=== PATIENT | female | born 1945 | race Caucasian/White ===

== ENCOUNTER 2017-04-03 05:18 | Emergency (ER) | payer MEDICARE, OTHER ==
--- NOTE | 2017-04-03 05:31 | ED Physician Documentation ---
PD HPI CHEST PAIN - Stated complaint Stated Complaint: CHEST PAIN - Chief complaint Chief Complaint: Cardiac - History obtained from History obtained from: Patient - History of Present Illness Timing - onset: Enter time (04:00) Timing - onset during: Sleep Timing - details: Abrupt onset Pain level now: 4 Quality: Pressure Location: Substernal Radiation: Neck, Other (bilateral shoulders) Improved by: Nothing Worsened by: Other (no apparent exacerbating factors) Associated symptoms: Diaphoresis (patient says this is normal for her ("I'm always sweating", per patient)). No: Shortness of air, Nausea, Vomiting, Feeling faint / dizzy, General Weakness, Palpitations, Cough Similar symptoms before: Has not had sx before Recently seen: Not recently seen - Additional information Additional information: awoke at 4 AM this morning with central chest pressure that radiated to both shoulders, neck, and to ears. 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, Hysterectomy, Other Cardiovascular: Other HEENT: Tonsil/Adenoidectomy - Present Medications Home Medications: Ambulatory Orders Medication Instructions Recorded Confirmed Aspirin [Maria R] 325 mg PO DAILY 10/13/13 04/03/17 Atorvastatin Calcium [Lipitor] 20 mg PO DAILY 10/13/13 04/03/17 Celecoxib [CeleBREX] 200 mg PO DAILY 10/13/13 04/03/17 Evoxac 30 mg PO TID 10/13/13 04/03/17 Gabapentin [Neurontin] 600 mg PO DAILY 10/13/13 04/03/17 Multivitamin [Multi-Day Vitamins] 1 each PO DAILY 10/13/13 04/03/17 Omeprazole [Prilosec] 40 mg PO BID 10/13/13 04/03/17 Pentosan Polysulfate Sodium 100 mg PO TID 10/13/13 04/03/17 [Elmiron] Vitamin E [Aquasol E] 50 unit PO DAILY 10/13/13 04/03/17 diazePAM [Valium] 5 mg PO TID PRN #15 tablet 04/20/15 04/03/17 oxyCODONE [Roxicodone] 5 - 10 mg PO Q6H PRN #20 tablet 04/20/15 04/03/17 - Allergies Allergies/Adverse Reactions: Allergies Allergy/AdvReac Type Severity Reaction Status Date / Time naproxen Allergy Mild Itching Verified 04/03/17 05:26 - Social History Does the pt smoke?: No Smoking Status: Never smoker Does the pt drink ETOH?: No Does the pt have substance abuse?: No - Immunizations Immunizations are current?: Yes - POLST Patient has POLST: No PD ED PE NORMAL - Vitals Vital signs reviewed: Yes - General General: Alert and oriented X 3, No acute distress, Well developed/nourished - Cardiac Cardiac: RRR, No murmur, No gallop, No rub - Respiratory Respiratory: No respiratory distress, Clear bilaterally - Abdomen Abdomen: Soft, Non tender - Derm Derm: Normal color, Warm and dry - Extremities Extremities: No edema Results - Vitals Vitals: Vital Signs - 24 hr 04/03/17 04/03/17 05:22 06:31 Temperature 36.2 C L Heart Rate 83 70 Respiratory 19 16 Rate Blood Pressure 161/81 H 129/65 O2 Saturation 96 97 Oxygen O2 Source Room air - EKG (time done) No standard instances Rate: Rate (enter#) (81) Rhythm: NSR Newberg: LAD Intervals: Normal CO QRS: Normal Ischemia: Normal ST segments - Labs Labs: Laboratory Tests 04/03/17 04/03/17 04/03/17 05:30 05:30 05:30 WBC 9.6 RBC 4.30 Hgb 13.3 Hct 39.7 MCV 92.5 MCH 31.0 MCHC 33.5 RDW 14.0 Plt Count 251 MPV 9.5 Neut # 5.6 Lymph # 2.9 [place] # 0.9 Eos # 0.2 Baso # 0.1 Absolute Nucleated RBC 0.00 Nucleated RBCs 0.0 Sodium 143 Potassium 3.5 Chloride 107 Carbon Dioxide 27 Anion Gap 9.0 BUN 9 Creatinine 0.6 Estimated GFR (MDRD) 99 Glucose 101 H Calcium 9.1 Total Bilirubin 0.7 AST 31 ALT 28 Alkaline Phosphatase 87 Troponin I < 0.04 Total Protein 7.2 Albumin 4.2 Globulin 3.0 Albumin/Globulin Ratio 1.4 Lipase 71 H - Rads (name of study) chest xray Radiology: Prelim report reviewed, See rad report PD MEDICAL DECISION MAKING - ED course Complexity details: reviewed results, re-evaluated patient, considered differential, d/w patient Departure - Departure Disposition: 01 Home, Self Care Clinical Impression: Chest pain Condition: Good Instructions: ED Chest Pain Atypical Unkn Cause Follow-Up: Edwin Leon MD [Primary Care Provider] - (Call to arrange for next available appointment)
[2017-04-03 05:41] LABS: BASOPHILS # (AUTO) 0.1 10^3/uL (0.0-0.1); BASOPHILS % (AUTO) 0.8 %; EOSINOPHILS # (AUTO) 0.2 10^3/uL (0.0-0.7); EOSINOPHILS % (AUTO) 1.6 %; HCT - HEMATOCRIT 39.7 % (37.0-47.0); HGB - HEMOGLOBIN 13.3 g/dL (12.0-16.0); LYMPHOCYTES # (AUTO) 2.9 10^3/uL (1.5-3.5); LYMPHOCYTES % (AUTO) 29.9 %; MEAN CORPUSCULAR HGB CONC 33.5 g/dL (32.0-36.0); MEAN CORPUSCULAR VOLUME 92.5 fL (81.0-99.0); MEAN PLATELET VOLUME 9.5 fL (7.9-10.8); MONOCYTES # (AUTO) 0.9 10^3/uL (0.0-1.0); MONOCYTES % (AUTO) 9.4 %; NEUTROPHILS # (AUTO) 5.6 10^3/uL (1.5-6.6); NEUTROPHILS % (AUTO) 58.3 %; UNCORRECTED WHITE BLOOD COUNT 9.6 x10^3/uL; WHITE BLOOD COUNT 9.6 x10^3/uL (4.8-10.8)
[2017-04-03 05:54] LABS: ALBUMIN/GLOBULIN RATIO 1.4 (1.0-2.2); BILIRUBIN,TOTAL 0.7 mg/dL (0.2-1.0); CALCIUM 9.1 mg/dL (8.5-10.3); CREATININE 0.6 mg/dL (0.4-1.0); POTASSIUM 3.5 mmol/L (3.5-5.0); TOTAL PROTEIN 7.2 g/dL (6.7-8.2)
[2017-04-03 06:32] VITALS: BP 129/65
--- NOTE | 2017-04-03 06:39 | XRAY Preliminary Report ---
Exam: XR Chest 2 View PA/LAT IMPRESSION: Negative 2-view chest radiography. [facility] SITE ID: [id number]
--- NOTE | 2017-04-03 06:41 | XRAY Report ---
EXAM: CHEST RADIOGRAPHY EXAM DATE: 04/03/2017 06:18 AM. CLINICAL HISTORY: Chest pain. COMPARISON: 05/19/2009. TECHNIQUE: 2 views. FINDINGS: Lungs/Pleura: No focal opacities evident. No pleural effusion. No pneumothorax. Normal volumes. Mediastinum: Heart and mediastinal contours are unremarkable. Other: None. IMPRESSION: Negative 2-view chest radiography. [facility] Referring Provider Line: [phone] SITE ID: [id number]
== END 2017-04-03 07:05 | disposition home or self-care (01) ==
LOC: ED 05:18
DX: R07.9 Chest pain, unspecified (principal); M54.2 Cervicalgia; E78.00 Pure hypercholesterolemia, unspecified; K21.9 Gastro-esophageal reflux disease without esophagitis; M19.90 Unspecified osteoarthritis, unspecified site; Z79.82 Long term (current) use of aspirin
CPT/HCPCS: 36415; 71020; 80053; 83690; 84484; 85025; 93005; 99283; 99284

== ENCOUNTER 2017-04-29 10:43 | Outpatient (CLI) | payer MEDICARE, OTHER ==
--- NOTE | 2017-04-29 16:38 | CT Report ---
CT SINUSES: 04/29/2017 CLINICAL HISTORY: Chronic sinusitis. TECHNIQUE: Axial images were obtained through the paranasal sinuses. Sagittal and coronal reformati ons performed. FINDINGS: The visualized paranasal sinuses are clear. There is no mucosal thickening or fluid level . Both ostiomeatal complexes are patent. There is mild turbinate edema at the time of examination. Bilateral altaf bullosa noted. The nasal septum is minimally deviated towards the right. The periorbital soft tissues are normal. The osseous structures are intact. IMPRESSION: 1. CLEAR PARANASAL SINUSES. 2. MILD TURBINATE EDEMA. JOB #: [id number] EXT JOB #:[id number]
== END 2017-04-29 10:44 | disposition home or self-care (01) ==
LOC: DI 10:43
PROVIDERS: ATTEND Otolaryngology
DX: J32.9 Chronic sinusitis, unspecified (principal)
CPT/HCPCS: 70486

== ENCOUNTER 2017-06-18 08:23 | Day surgery (SDC) | payer MEDICARE, OTHER ==
[2017-06-18] MEDS ORDERED: LACTATED RINGERS 1,000 ML IV ONE ×2 (08:43→10:00)
[2017-06-18] MEDS ORDERED: fentaNYL 100 MCG/2 ML VIAL IVP ONE (09:38)
[2017-06-18] MEDS ORDERED: ONDANSETRON 4 MG/2 ML VIAL IVP ONE (09:38)
[2017-06-18] MEDS ORDERED: MIDAZOLAM 2 MG/2 ML VIAL IVP ONE (09:38)
--- NOTE | 2017-06-18 10:44 | PROCEDURE REPORT ---
DATE OF PROCEDURE: 06/18/2017 00:00:00 PROCEDURE PERFORMED: EGD with biopsy. ENDOSCOPIST: Brandon Santos MD. PRIMARY CARE: Edwin Leon MD. INDICATION: Worsening GE reflux, rule out Castillo's esophagus. Previous endoscopy is apparently negat mack. Currently having sinus drainage that has been blamed on reflux. PREMEDICATIONS: Fentanyl 100 mcg, Versed 7 mg IV titration, Zofran 4 mg IV titration. TOTAL SEDATION TIME: 11 minutes. After informed consent was obtained, the patient placed in left lateral decubitus position. The video colonoscope was placed in the oropharynx and with the patient's help swallowed into the esophagus. T he esophagus, stomach, and duodenum were carefully examined. On withdrawal, retroflexed view of the G E junction was performed. The scope was removed. The patient tolerated the procedure well. BLOOD LOSS: None. COMPLICATIONS: None. FINDINGS 1. A 0.5 cm tongue of abnormal tissue above the squamocolumnar junction at 33 cm. This is either an h ealing erosion or tongue of Castillo's. Biopsies taken x2. This was T0 M0 0.5. 2. A 3 cm hiatal hernia. 3. Normal stomach otherwise. 4. Normal duodenum. The patient will call the office to schedule a followup with me and we will send results of biopsies. It may well be that she needs a physiologic test such as a restech performed and certainly needs adj ustment of her medication. JOB #: [id number] EXT JOB #:[id number]
[2017-06-18 10:48] VITALS: BP 131/75
== END 2017-06-18 08:24 | disposition home or self-care (01) ==
LOC: SDS 08:23
PROVIDERS: ATTEND Internal Medicine Gastroenterology
PROC: 0DB58ZX Excision of Esophagus, Via Natural or Artificial Opening Endoscopic, Diagnostic (ICD-10-PCS; principal; 2017-06-18 09:30)
DX: K21.9 Gastro-esophageal reflux disease without esophagitis (principal); K44.9 Diaphragmatic hernia without obstruction or gangrene; I10 Essential (primary) hypertension; E78.00 Pure hypercholesterolemia, unspecified; M79.7 Fibromyalgia; J45.909 Unspecified asthma, uncomplicated; M35.00 Sjogren syndrome, unspecified; Z79.82 Long term (current) use of aspirin
CPT/HCPCS: 43239; 88305; J7120

== ENCOUNTER 2017-07-08 09:56 | Outpatient (CLI) | payer MEDICARE, OTHER ==
[2017-07-08] MEDS ORDERED: BARIUM SULFATE 148 GM POWDER PO ONE (10:46)
[2017-07-08] MEDS ORDERED: BARIUM SULFATE 454 GM TUBE PO ONE (10:46)
--- NOTE | 2017-07-08 11:07 | XRAY Report ---
MODIFIED BARIUM SWALLOW: 07/08/2017 TOTAL FLUORO TIME: 1 minute, 6 seconds. TOTAL NUMBER OF IMAGES: 57 FINDINGS/IMPRESSION: Serial thicknesses of barium were administered orally and followed fluoroscopically with a Speech Pathologist in attendance. No aspiration or tracheal penetration was demonstrated. Please refer to the Speech report for further details. JOB #: [id number] EXT JOB #: [id number] [facility]
== END 2017-07-08 09:57 | disposition home or self-care (01) ==
LOC: DI 09:56
PROVIDERS: ATTEND Otolaryngology
DX: K21.0 Gastro-esophageal reflux disease with esophagitis (principal); F45.8 Other somatoform disorders
CPT/HCPCS: 74230; 92611; G8996; G8997; G8998

== ENCOUNTER 2017-08-13 10:43 | Outpatient (CLI) | payer MEDICARE, OTHER ==
--- NOTE | 2017-08-13 12:31 | XRAY Report ---
THREE-VIEW RIGHT SHOULDER: 08/13/2017 CLINICAL INDICATION: Pain. FINDINGS: Internal and external rotational views and a scapular Y view of the right shoulder demonst rate mild degenerative changes, with small osteophytes. There appear to be postoperative changes in the distal right clavicle. No acute fracture is seen. IMPRESSION: MILD DEGENERATIVE CHANGES. POSTOPERATIVE CHANGES IN THE DISTAL RIGHT CLAVICLE. JOB #: [id number] EXT JOB #:[id number]
== END 2017-08-13 10:44 | disposition home or self-care (01) ==
LOC: DI 10:43
PROVIDERS: ATTEND Family Medicine
DX: M19.011 Primary osteoarthritis, right shoulder (principal)

== ENCOUNTER 2017-09-13 09:23 | Outpatient (CLI) | payer MEDICARE, OTHER ==
--- NOTE | 2017-09-13 20:46 | Ultrasound Report ---
EXAM: ABDOMEN ULTRASOUND EXAM DATE: 09/13/2017 10:09 AM. CLINICAL HISTORY: Elevated bilirubin. COMPARISON: None. TECHNIQUE: Real-time scanning was performed with static images obtained. FINDINGS: Liver: Heterogeneous liver parenchyma without mass or intrahepatic bile duct dilation noted. 12.6 cm. Main portal vein flow: Hepatopetal. Gallbladder: Surgically absent. Biliary System: Common bile duct measures 4.5 mm. No intrahepatic or extrahepatic ductal dilatation. Pancreas: Partially obscured but otherwise unremarkable. Kidneys: Right: 10.8 cm longitudinally. Normal. No contour-deforming mass, stones, or hydronephrosis. Left: 10.4 cm longitudinally. Normal. No contour-deforming mass, stones, or hydronephrosis. Spleen: 8.2 x 3.2 x 3.2 cm. Normal in size and echotexture. Aorta and Inferior Vena Cava: Unremarkable. Other: None. IMPRESSION: 1. Gallbladder is absent. 2. Heterogeneous liver. No mass or intrahepatic bile duct dilation. Normal common bile duct. 3. Pancreas not well seen but grossly unremarkable. [facility] Referring Provider Line: [phone] SITE ID: [id number]
== END 2017-09-13 09:24 | disposition home or self-care (01) ==
LOC: DI 09:23
PROVIDERS: ATTEND Family Medicine
DX: R94.5 Abnormal results of liver function studies (principal); Z90.49 Acquired absence of other specified parts of digestive tract
CPT/HCPCS: 76700

== ENCOUNTER 2017-10-12 00:32 | Emergency (ER) | payer MEDICARE, OTHER ==
--- NOTE | 2017-10-12 01:14 | ED Physician Documentation ---
PD HPI BACK PAIN - Stated complaint Stated Complaint: LOWER BACK PX - Chief complaint Chief Complaint: Back Pain - History obtained from History obtained from: Patient - History of Present Illness Timing - onset: How many days ago (2) Timing - duration: Days (2) Timing - details: Gradual onset, Still present Location: Lower, Right, Left Quality: Pain, Spasm, Aching Associated symptoms: Numbness (pain radiates down both back of thighs to sides of feet. Has had it before with exac of sciatic pain. No noted new injury, but increased over past couple days.). No: Fever, Weakness Improves with: Rest Worsened by: Movement Contributing factors: No: Lifting, Twisting, Trauma Similar symptoms before: Diagnosis (sciatic and degenerative disc problems, with intermittent flares. She says she gets a shot monthly by PMD that keeps it from flaring up. She does not know the name of the med.) Recently seen: Not recently seen Review of Systems Ten Systems: 10 systems reviewed and negative Constitutional: denies: Fever, Chills Nose: denies: Rhinorrhea / runny nose, Congestion Throat: denies: Sore throat Respiratory: denies: Cough GI: reports: Nausea (when the pain was worse earlier today). denies: Abdominal Pain, Vomiting, Diarrhea : reports: Incontinent (due to bladder control and not from back issues.). denies: Dysuria, Frequency Skin: denies: Rash, Lesions Musculoskeletal: reports: Back pain Neurologic: reports: Numbness (chronic in legs from neuropathy and gets worse with the back pain flare ups.). 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, Hysterectomy HEENT: Tonsil/Adenoidectomy - Present Medications Home Medications: Ambulatory Orders Medication Instructions Recorded Confirmed Atorvastatin Calcium [Lipitor] 20 mg PO DAILY 10/13/13 10/12/17 Evoxac 30 mg PO BID 10/13/13 10/12/17 Pentosan Polysulfate Sodium 100 mg PO BID 10/13/13 10/12/17 [Elmiron] Aspirin [Aspirin EC] 81 mg PO DAILY 06/17/17 10/12/17 Pantoprazole [Protonix] 40 mg PO BID 06/17/17 10/12/17 Prevagen 1 tab PO DAILY 06/17/17 10/12/17 Vit A/C/E/Zinc/Selenium/Copper 1 each PO DAILY 06/17/17 10/12/17 [Vision Formula Tablet] Dexamethasone [Decadron] 4 mg PO DAILY #5 tablet 10/12/17 Methocarbamol [Robaxin] 500 mg PO Q8H PRN #15 tablet 10/12/17 Metoprolol Tartrate 1 tab PO DAILY 10/12/17 10/12/17 Ondansetron Odt [Zofran] 4 mg TL Q6H PRN #15 tablet 10/12/17 Oxycodone HCl/Acetaminophen 1 each PO Q6H PRN #20 tablet 10/12/17 [Percocet 5-325 mg Tablet] oxyCODONE [Roxicodone] 5 mg PO Q6HR PRN 10/12/17 10/12/17 - Allergies Allergies/Adverse Reactions: Allergies Allergy/AdvReac Type Severity Reaction Status Date / Time naproxen Allergy Mild Itching Verified 10/12/17 00:48 - Social History Does the pt smoke?: No Smoking Status: Never smoker Does the pt drink ETOH?: No Does the pt have substance abuse?: No - Immunizations Immunizations are current?: Yes - POLST Patient has POLST: No PD ED PE NORMAL - Vitals Vital signs reviewed: Yes - General General: Alert and oriented X 3, Well developed/nourished, Other (appears in pain, guarded ROM of the low back. ) - Neck Neck: Supple, no meningeal sign, No adenopathy - Cardiac Cardiac: RRR, No murmur - Respiratory Respiratory: Clear bilaterally - Abdomen Abdomen: Soft, Non tender - Female Female : Deferred - Rectal Rectal: Deferred - Back Back: No CVA TTP - Derm Derm: Normal color, Warm and dry - Extremities Extremities: No tenderness to palpate, Normal ROM s pain - Neuro Neuro: Alert and oriented X 3, No motor deficit, Normal speech, Other ( decreased sensation of both lower legs laterally and around the knees (prior knee replacements).) Results - Vitals Vitals: Vital Signs - 24 hr 10/12/17 10/12/17 10/12/17 00:35 01:52 02:05 Temperature 36.9 C 36.4 C L Heart Rate 68 59 L 65 Respiratory 20 14 16 Rate Blood Pressure 163/79 H 136/81 H 144/85 H O2 Saturation 97 96 99 Oxygen O2 Source Room air PD MEDICAL DECISION MAKING - ED course Complexity details: considered differential (recurrent problem familiar to the patient. No other red flags (has ongoing numbness in legs, not worse than baseline). ), d/w patient, d/w family Departure - Departure Disposition: Home, Self Care Clinical Impression: Low back pain Qualifiers: Chronicity: acute Back pain laterality: bilateral Sciatica presence: with sciatica Sciatica laterality: bilateral sciatica Qualified Code(s): M54.42 - Lumbago with sciatica, left side Condition: Stable Record reviewed to determine appropriate education?: Yes Instructions: ED Low Back Pain Injury, ED Sciatica Follow-Up: Edwin Leon MD [Primary Care Provider] - Prescriptions: Dexamethasone [Decadron] 4 mg PO DAILY #5 tablet Methocarbamol [Robaxin] 500 mg PO Q8H PRN #15 tablet PRN Reason: Spasms Ondansetron Odt [Zofran] 4 mg TL Q6H PRN #15 tablet PRN Reason: Nausea / Vomiting Oxycodone HCl/Acetaminophen [Percocet 5-325 mg Tablet] 1 each PO Q6H PRN #20 tablet PRN Reason: Pain Comments: Decadron daily for 5 more days for inflammation. Use Tylenol or Percocet if needed for pain every 6 hours. He can use methocarbamol if needed for spasms and stiffness 3 times a day. Ondansetron if needed for nausea. Heat and gentle stretching for the low back. Follow-up with Dr. Leon if not improving over the next few days.
[2017-10-12] MEDS ORDERED: KETOROLAC 60 MG/2 ML VIAL IM STA (01:29)
[2017-10-12] MEDS ORDERED: HYDROmorphone 1 MG/ML SYRINGE IM STA (01:29)
[2017-10-12] MEDS ORDERED: DEXAMETHASONE 10 MG/ML VIAL PO STA (01:30)
[2017-10-12] MEDS ORDERED: ONDANSETRON ODT 4 MG TABLET TL STA (01:30)
[2017-10-12] MEDS ORDERED: oxyCODONE/ACET 5/325 Prepack 4 PO STA (01:58)
[2017-10-12] MEDS ORDERED: ONDANSETRON ODT 4 MG Prepack 2 TL PRN (02:13)
[2017-10-12] MEDS ORDERED: PROMETHAZINE 25 MG/1 ML VIAL IM STA (02:21)
[2017-10-12 03:01] VITALS: BP 134/77
== END 2017-10-12 02:55 | disposition home or self-care (01) ==
LOC: ED 00:32
DX: M54.42 Lumbago with sciatica, left side (principal); I10 Essential (primary) hypertension; E78.00 Pure hypercholesterolemia, unspecified; I49.9 Cardiac arrhythmia, unspecified; J45.909 Unspecified asthma, uncomplicated; K21.9 Gastro-esophageal reflux disease without esophagitis; M19.90 Unspecified osteoarthritis, unspecified site; M79.7 Fibromyalgia; Z79.82 Long term (current) use of aspirin
CPT/HCPCS: 96372; 99283; J1170; Q0162

== ENCOUNTER 2017-12-17 13:21 | Day surgery (SDC) | payer MEDICARE, OTHER ==
[2017-12-17] MEDS ORDERED: LACTATED RINGERS 1,000 ML IV ONE (14:21)
[2017-12-17 15:45] VITALS: BP 128/82
[2017-12-17] MEDS ORDERED: fentaNYL 250 MCG/5 ML VIAL IVP ONE (15:45)
[2017-12-17] MEDS ORDERED: PROPOFOL 200 MG/20 ML VIAL IVP ONE (15:45)
[2017-12-17] MEDS ORDERED: MIDAZOLAM 2 MG/2 ML VIAL IVP ONE (15:45)
== END 2017-12-17 13:22 | disposition home or self-care (01) ==
LOC: SDS 13:21
PROVIDERS: ATTEND Internal Medicine
PROC: 0DBL8ZX Excision of Transverse Colon, Via Natural or Artificial Opening Endoscopic, Diagnostic (ICD-10-PCS; 2017-12-17)
PROC: 0DBN8ZX Excision of Sigmoid Colon, Via Natural or Artificial Opening Endoscopic, Diagnostic (ICD-10-PCS; 2017-12-17)
PROC: 0DBH8ZZ Excision of Cecum, Via Natural or Artificial Opening Endoscopic (ICD-10-PCS; 2017-12-17)
PROC: 0DBK8ZZ Excision of Ascending Colon, Via Natural or Artificial Opening Endoscopic (ICD-10-PCS; 2017-12-17)
PROC: 0DBL8ZZ Excision of Transverse Colon, Via Natural or Artificial Opening Endoscopic (ICD-10-PCS; 2017-12-17)
PROC: 0DBK8ZZ Excision of Ascending Colon, Via Natural or Artificial Opening Endoscopic (ICD-10-PCS; principal; 2017-12-17 15:00)
DX: Z12.11 Encounter for screening for malignant neoplasm of colon (principal); D12.2 Benign neoplasm of ascending colon; D12.0 Benign neoplasm of cecum; D12.3 Benign neoplasm of transverse colon; K55.8 Other vascular disorders of intestine; K57.30 Diverticulosis of large intestine without perforation or abscess without bleeding; Z80.0 Family history of malignant neoplasm of digestive organs; I10 Essential (primary) hypertension; Z79.891 Long term (current) use of opiate analgesic; M79.7 Fibromyalgia; E78.5 Hyperlipidemia, unspecified; K21.9 Gastro-esophageal reflux disease without esophagitis
CPT/HCPCS: 45380; 45385; J3010; J7120; 88305

== ENCOUNTER 2018-03-24 10:29 | Emergency (ER) | payer MEDICARE, OTHER ==
[2018-03-24 10:45] VITALS: BP 137/76
== END 2018-03-24 11:14 | disposition left against medical advice (07) ==
LOC: ED 10:29
DX: Z53.21 Procedure and treatment not carried out due to patient leaving prior to being seen by health care provider (principal)

== ENCOUNTER 2019-08-31 01:22 | Emergency (ER) | payer MEDICARE, OTHER ==
[2019-08-31] MEDS ORDERED: KETOROLAC 30 MG/ML VIAL IVP STA (01:55)
[2019-08-31] MEDS ORDERED: ONDANSETRON 4 MG/2 ML VIAL IVP STA (01:55)
[2019-08-31] MEDS ORDERED: SODIUM CHLORIDE 0.9% 1,000 ML IV ONE (01:55)
--- NOTE | 2019-08-31 01:59 | ED Physician Documentation ---
PD HPI ABD PAIN - Stated complaint Stated Complaint: ABD PX/NAUSEOUS - Chief complaint Chief Complaint: Abd Pain - History obtained from History obtained from: Patient, Family - History of Present Illness Timing - onset: Today Timing - duration: Hours Timing - details: Abrupt onset, Still present Quality: Sharp, Pain Location: RLQ Radiation: Right flank Improved by: Other (moving) Worsened by: Palpation Associated symptoms: Nausea, Dysuria. No: Vomiting Similar symptoms before: Has not had sx before Recently seen: Clinic - Additional information Additional information: 73 y/o female with a history of interstitial cystitis and sjogrens syndrome has developed acute right flank pain with nausea. She has an order for Bactrim for UTI that she has not filled yet. She has been afebrile. Review of Systems Constitutional: reports: Fatigue. denies: Fever Eyes: denies: Decreased vision Ears: denies: Ear pain Nose: denies: Rhinorrhea / runny nose, Congestion Throat: denies: Sore throat Cardiac: denies: Chest pain / pressure, Palpitations Respiratory: denies: Dyspnea, Cough GI: reports: Abdominal Pain, Nausea. denies: Vomiting, Constipation, Diarrhea : reports: Dysuria, Frequency Skin: denies: Rash Musculoskeletal: reports: Back pain. 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, Hysterectomy HEENT: Tonsil/Adenoidectomy - Present Medications Home Medications: Ambulatory Orders Medication Instructions Recorded Confirmed Atorvastatin [Lipitor] 20 mg 03/24/18 Cevimeline HCl [Evoxac] 30 mg 03/24/18 Fluticasone/Vilanterol [Breo 03/24/18 Ellipta 100-25 Mcg INH] Lifitegrast [Xiidra] 03/24/18 Metoprolol Succinate [Toprol Xl] 25 mg 03/24/18 Oxycodone HCl 5 mg 03/24/18 Pantoprazole [Protonix] 40 mg 03/24/18 Pentosan Polysulfate Sodium 03/24/18 [Elmiron] - Allergies Allergies/Adverse Reactions: Allergies Allergy/AdvReac Type Severity Reaction Status Date / Time naproxen Allergy Mild Itching Verified 08/31/19 01:25 - Social History Does the pt smoke?: No Smoking Status: Never smoker Does the pt drink ETOH?: No Does the pt have substance abuse?: No - Immunizations Immunizations are current?: Yes - POLST Patient has POLST: No PD ED PE NORMAL - Vitals Vital signs reviewed: Yes (hypertensive ) - General General: Alert and oriented X 3, Well developed/nourished, Other (The patient appears anxious and in pain and is moving frequently ) - HEENT HEENT: Atraumatic, PERRL, EOMI - Neck Neck: Supple, no meningeal sign, No bony TTP - Cardiac Cardiac: RRR, No murmur - Respiratory Respiratory: No respiratory distress, Clear bilaterally - Abdomen Abdomen: Soft, Other (mild right flank tenderness no right lower quadrant tenderness and no right upper quadrant tenderness. ) - Back Back: No spinal TTP, Other (right CVA tenderness is specific and located over the kidney sonographically ) - Derm Derm: Normal color, Warm and dry, No rash - Extremities Extremities: No deformity, No edema, No calf tenderness / cord - Neuro Neuro: Alert and oriented X 3, certified surgical assistant 2-12 intact, No motor deficit, No sensory deficit, Normal speech Eye Opening: Spontaneous Motor: Obeys Commands Verbal: Oriented GCS Score: 15 - Psych Psych: Normal affect, Other (mood is anxious ) Results - Vitals Vitals: Vital Signs - 24 hr 08/31/19 01:25 Temperature 36.8 C Heart Rate 86 Respiratory 14 Rate Blood Pressure 144/88 H O2 Saturation 96 Oxygen O2 Source Room air - Labs Labs: Laboratory Tests 08/31/19 08/31/19 08/31/19 02:05 02:05 02:05 WBC 12.8 H RBC 4.37 Hgb 13.8 Hct 42.4 MCV 97.0 MCH 31.6 H MCHC 32.5 RDW 14.1 Plt Count 293 MPV 10.6 Neut # (Auto) 8.5 H Lymph # (Auto) 2.8 [place] # (Auto) 1.2 H Eos # (Auto) 0.1 Baso # (Auto) 0.1 Absolute Nucleated RBC 0.00 Nucleated RBC % 0.0 Sodium 144 Potassium 3.7 Chloride 106 Carbon Dioxide 27 Anion Gap 11.0 BUN 13 Creatinine 0.7 Estimated GFR (MDRD) 82 L Glucose 111 H Calcium 10.3 Total Bilirubin 1.8 H AST 37 ALT 36 Alkaline Phosphatase 71 Total Protein 8.1 Albumin 4.7 Globulin 3.4 Albumin/Globulin Ratio 1.4 Lipase 98 H Urine Color YELLOW Urine Clarity SL. CLOUDY Urine pH 7.0 Ur Specific [place] 1.010 Urine Protein 100 H Urine Glucose (UA) NEGATIVE Urine Ketones NEGATIVE Urine Occult Blood LARGE H Urine Nitrite NEGATIVE Urine Bilirubin NEGATIVE Urine Urobilinogen 0.2 (NORMAL) Ur Leukocyte Esterase SMALL H Urine RBC TNTC H Urine WBC 11-25 H Ur Squamous Epith Cells RARE Squamous Urine Bacteria Rare Ur Microscopic Review INDICATED Urine Culture Comments INDICATED - Rads (name of study) CT ab/pel Radiology: Prelim report reviewed (Impression: 1. Tiny bilateral nonobstructing renal stones. Minimally patulous right renal collecting system may be normal variant versus recently passed stone. Previous cholecystectomy and hysterectomy.), EMP read indepedently, See rad report Procedures - Bedside sono Bedside sono by EMP: These bedside ultrasound the right kidney is imaged it is sonographically tender and there is evidence of mild hydronephrosis. PD MEDICAL DECISION MAKING - ED course Complexity details: reviewed results, re-evaluated patient, considered differential, d/w patient, d/w family ED course: 73 y/o female with right flank pain with acute onset has evidence on CT of recently passed stone. She has blood in the urine as well as infection and here pain has entirely resolved. I suspect she has had the bladder infection and the pain this evening was related to a stone that has now passed. She is given a dose of rocephin in the ED and will start her septra when she picks up the script. Departure - Departure Disposition: 01 Home, Self Care Clinical Impression: Ureterolithiasis Urinary tract infection Qualifiers: Urinary tract infection type: acute cystitis Hematuria presence: with hematuria Qualified Code(s): N30.01 - Acute cystitis with hematuria Instructions: ED UTI Cystitis Female, ED Stone Renal W Colic Follow-Up: Edwin Leon MD [Primary Care Provider] -
[2019-08-31 02:18] LABS: BASOPHILS # (AUTO) 0.1 10^3/uL (0.0-0.1); BASOPHILS % (AUTO) 0.5 %; EOSINOPHILS # (AUTO) 0.1 10^3/uL (0.0-0.7); HGB - HEMOGLOBIN 13.8 g/dL (12.0-16.0); LYMPHOCYTES # (AUTO) 2.8 10^3/uL (1.5-3.5); LYMPHOCYTES % (AUTO) 21.6 %; MEAN CORPUSCULAR HEMOGLOBIN 31.6 pg (27.0-31.0); MEAN CORPUSCULAR HGB CONC 32.5 g/dL (32.0-36.0); MEAN PLATELET VOLUME 10.6 fL (7.9-10.8); MONOCYTES # (AUTO) 1.2 10^3/uL (0.0-1.0); MONOCYTES % (AUTO) 9.3 %; NEUTROPHILS # (AUTO) 8.5 10^3/uL (1.5-6.6); PLT - PLATELET COUNT 293 10^3/uL (130-450); RED BLOOD COUNT 4.37 10^6/uL (4.20-5.40); RED CELL DISTRIBUTION WIDTH 14.1 % (12.0-15.0); WHITE BLOOD COUNT 12.8 x10^3/uL (4.8-10.8)
[2019-08-31 02:19] LABS: BILIRUBIN,URINE NEGATIVE (NEGATIVE); GLUCOSE, URINE (UA) NEGATIVE (NEGATIVE); KETONES,URINE (UA) NEGATIVE (NEGATIVE); LEUKOCYTE ESTERASE, URINE SMALL (NEGATIVE); NITRITE,URINE NEGATIVE (NEGATIVE); OCCULT BLOOD,URINE LARGE (NEGATIVE); PROTEIN,URINE 100 mg/dL (NEGATIVE); UROBILINOGEN,URINE 0.2 (NORMAL) E.U./dL (NORMAL)
[2019-08-31 02:29] LABS: ALBUMIN 4.7 g/dL (3.2-5.5); ALBUMIN/GLOBULIN RATIO 1.4 (1.0-2.2); BILIRUBIN,TOTAL 1.8 mg/dL (0.2-1.0); CALCIUM 10.3 mg/dL (8.5-10.3); CREATININE 0.7 mg/dL (0.4-1.0); TOTAL PROTEIN 8.1 g/dL (6.7-8.2)
[2019-08-31 02:34] LABS: BACTERIA,URINE Rare /HPF (None Seen); CLARITY,URINE SL. CLOUDY (CLEAR); RBC,URINE TNTC /HPF (0-5); SQUAMOUS EPITHELIAL CELL,UR RARE Squamous (<= Few)
--- NOTE | 2019-08-31 03:00 | CT Report ---
Reason: R flank pain Procedure Date: 08/31/2019 Accession Number: [id number] / [id number] Procedure: CT - Abdomen/Pelvis WO CPT Code: Final Report FULL RESULT: EXAM: CT ABDOMEN AND PELVIS (CT KUB) EXAM DATE: 08/31/2019 02:35 AM CLINICAL HISTORY: Right flank pain. COMPARISONS: LUMBAR SPINE W/O 09/22/2015 11:25 AM. TECHNIQUE: Routine axial helical CT imaging was performed through the abdomen and pelvis without IV contrast. Reconstructions: Coronal and sagittal. In accordance with CT protocol optimization, one or more of the following dose reduction techniques were utilized for this exam: automated exposure control, adjustment of mA and/or KV based on patient size, or use of iterative reconstructive technique. FINDINGS: Lung Bases: Unremarkable. Kidney/Ureters: Tiny bilateral nonobstructing renal stones. No ureteral stone or left hydronephrosis seen. Minimally patulous right renal collecting system. Other Solid Organs: Noncontrast images of the solid organs are grossly unremarkable. Gallbladder/Bile Ducts: Unremarkable post-cholecystectomy. Peritoneal Cavity: No free fluid, free air or genoveva adenopathy. Bowel is grossly unremarkable. Pelvic Organs: Post-hysterectomy with no adnexal masses seen. The bladder appears within normal limits. Vasculature: Unremarkable. Other: None. IMPRESSION: 1. Tiny bilateral nonobstructing renal stones. 2. Minimally patulous right renal collecting system may be normal variant versus recently passed stone. 3. Previous cholecystectomy and hysterectomy. [facility]
[2019-08-31] MEDS ORDERED: cefTRIAXone 1 GM in SODIUM CHLORIDE 0.9% MINIBAG 100 ML IV STA (03:06)
[2019-08-31 03:54] VITALS: BP 136/84
== END 2019-08-31 03:57 | disposition home or self-care (01) ==
LOC: ED 01:22
DX: N13.2 Hydronephrosis with renal and ureteral calculous obstruction (principal); N30.01 Acute cystitis with hematuria; I10 Essential (primary) hypertension; M35.00 Sjogren syndrome, unspecified
CPT/HCPCS: 36415; 74176; 80053; 81001; 81003; 83690; 85025; 87086; 87181; 96361; 96365; 96375; 99284

== ENCOUNTER 2022-06-10 21:22 | Emergency (ER) | payer MEDICARE, OTHER ==
[2022-06-10 21:48] LABS: BASOPHILS # (AUTO) 0.1 10^3/uL (0.0-0.1); BASOPHILS % (AUTO) 0.8 %; EOSINOPHILS # (AUTO) 0.1 10^3/uL (0.0-0.7); EOSINOPHILS % (AUTO) 1.1 %; LYMPHOCYTES % (AUTO) 37.5 %; MEAN CORPUSCULAR HEMOGLOBIN 31.9 pg (27.0-31.0); MEAN CORPUSCULAR HGB CONC 33.3 g/dL (32.0-36.0); MEAN CORPUSCULAR VOLUME 95.7 fL (81.0-99.0); MEAN PLATELET VOLUME 10.5 fL (7.9-10.8); MONOCYTES # (AUTO) 0.7 10^3/uL (0.0-1.0); MONOCYTES % (AUTO) 8.8 %; NEUTROPHILS # (AUTO) 4.1 10^3/uL (1.5-6.6); NEUTROPHILS % (AUTO) 51.7 %; PLT - PLATELET COUNT 269 10^3/uL (130-450); RED BLOOD COUNT 3.76 10^6/uL (4.20-5.40); RED CELL DISTRIBUTION WIDTH 13.4 % (12.0-15.0); WHITE BLOOD COUNT 7.9 x10^3/uL (4.8-10.8)
--- OUTSIDE RECORDS SUMMARY | 2022-06-10 21:48 | EXTERNAL MEDICAL SUMMARY RPT | Continuity of Care Document ---
:1945 Author Organization [facility] Address [address] [place] [address] Phone Allergies No information. Encounters No information. Functional Status No information. Immunizations No information. Medications No information. Problems No information. Procedures No information. Results/Labs test date author facility value unit interpret ation Result panel 1 (unknown) (no (unknown) (unknown) (no value) (units (unk nown) date) unknown) (unknown) (no (unknown) (unknown) [address] (units (unkn own) date) Street unknown) (unknown) (no (unknown) (unknown) [place] (units ( unknown) date) [id number] unknown) (unknown) (no (unknown) (unknown) [facility] (units (unknown) date) unknown) (unknown) (no (unknown) (unknown) Signed (units (unkno wn) date) unknown) (unknown) (no (unknown) (unknown) XRay Report (units (un known) date) unknown) (unknown) (no (unknown) (unknown) (no value) (units (unk nown) date) unknown) (unknown) (no (unknown) (unknown) 03/20/22 (units (unkno wn) date) unknown) (unknown) (no (unknown) (unknown) 1. No acute (units (un known) date) lumbar spine unknown) fracture visualized radiographically . (unknown) (no (unknown) (unknown) 2. Multilevel (units ( unknown) date) degenerative unknown) changes of the lumbar spine. (unknown) (no (unknown) (unknown) Approved by: (units (u nknown) date) adrianne Garcia M.D. on 03/20/2022 at 20:34 (unknown) (no (unknown) (unknown) Approved by: (units (u nknown) date) adrianne Garcia M.D. on 03/20/2022 at 20:39 (unknown) (no (unknown) (unknown) Bones: 5 (units (unkno wn) date) [id number] unknown) vertebrae are present. There is normal bony (unknown) (no (unknown) (unknown) Bones: No (units (unkn own) date) fractures or unknown) dislocations. Pelvic ring appears intact. Similar (unknown) (no (unknown) (unknown) COMPARISON: (units (un known) date) [facility], unknown) CR, XR HIP W PEL IF DONE KRISTINA 3TO4V, 06/03/2019, (unknown) (no (unknown) (unknown) COMPARISON: (units (un known) date) [facility], unknown) CR, XR LUMBAR SPINE 2-3V, 06/03/2019, 14:23. (unknown) (no (unknown) (unknown) Dictated by: (units (u nknown) date) alyse Garcia) Todd on 03/20/2022 at 20:27 (unknown) (no (unknown) (unknown) Dictated by: (units (u nknown) date) alyse Garcia) Todd on 03/20/2022 at 20:34 (unknown) (no (unknown) (unknown) FINDINGS: (units (unkn own) date) unknown) (unknown) (no (unknown) (unknown) IMPRESSION: (units (un known) date) unknown) (unknown) (no (unknown) (unknown) INDICATIONS: (units (u nknown) date) MID LOW BACK unknown) PAIN (unknown) (no (unknown) (unknown) [place] (units (unkno wn) date) [facility], , unknown) HIP 2V LEFT, 12/01/2014, 11:54. (unknown) (no (unknown) (unknown) L5-S1. (units (unkno wn) date) unknown) (unknown) (no (unknown) (unknown) Similar (units (unkno wn) date) bilateral hip unknown) degenerative changes. (unknown) (no (unknown) (unknown) Soft tissues: (units ( unknown) date) Overlying bowel unknown) gas pattern is normal. No suspicious soft (unknown) (no (unknown) (unknown) Soft tissues: (units ( unknown) date) The visualized unknown) bowel gas pattern is normal. No suspicious soft (unknown) (no (unknown) (unknown) TECHNIQUE: 3 (units (u nknown) date) views of the unknown) lumbar spine were acquired. (unknown) (no (unknown) (unknown) TECHNIQUE: AP (units ( unknown) date) pelvis with unknown) lateral view(s) of both hip(s). (unknown) (no (unknown) (unknown) bilateral joint (units (unknown) date) space narrowing unknown) of the hips. (unknown) (no (unknown) (unknown) calcifications. (units (unknown) date) Generator pack unknown) projects over the right pelvis. (unknown) (no (unknown) (unknown) calcifications. (units (unknown) date) Right upper unknown) quadrant metal clips redemonstrated. Stimulator (unknown) (no (unknown) (unknown) disc space (units (unk nown) date) narrowing at unknown) L2-L3, L4-L5, and L5-S1. Bony foraminal narrowing (unknown) (no (unknown) (unknown) projects over (units ( unknown) date) the right unknown) pelvis. (unknown) (no (unknown) (unknown) vertebral body (units (unknown) date) compression unknown) fractures. No suspicious bony lesions. Moderate to (unknown) (no (unknown) (unknown) [id number] (units (unkno wn) date) unknown) (unknown) (no (unknown) (unknown) 14:23. (units (unkno wn) date) unknown) (unknown) (no (unknown) (unknown) Accession (units (unkn own) date) Number: unknown) [id number] (unknown) (no (unknown) (unknown) Accession (units (unkn own) date) Number: unknown) [id number] (unknown) (no (unknown) (unknown) Age/Sex: 76 / F (units (unknown) date) Date of unknown) Service: (unknown) (no (unknown) (unknown) : 1945 (units (unknown) date) Acct:[id number] unknown) (unknown) (no (unknown) (unknown) Loc: [facility] (units (unkno wn) date) unknown) (unknown) (no (unknown) (unknown) Ordering (units (unkno wn) date) Provider: unknown) Edwin Leon MD (unknown) (no (unknown) (unknown) PROCEDURE: XR (units ( unknown) date) HIP W PEL IF unknown) DONE BILAT 2V (unknown) (no (unknown) (unknown) PROCEDURE: XR (units ( unknown) date) LUMBAR SPINE unknown) 2-3V (unknown) (no (unknown) (unknown) Patient: (units (unkno wn) date) Eunice Ybarra M unknown) MR#: [id number] (unknown) (no (unknown) (unknown) Procedure: XR (units ( unknown) date) hip w pel if unknown) done BILAT 2V (unknown) (no (unknown) (unknown) Procedure: XR (units ( unknown) date) lumbar spine unknown) 2-3V (unknown) (no (unknown) (unknown) alignment. No (units ( unknown) date) unknown) (unknown) (no (unknown) (unknown) device (units (unkno wn) date) unknown) (unknown) (no (unknown) (unknown) mild-moderate (units ( unknown) date) unknown) (unknown) (no (unknown) (unknown) present at (units (unk nown) date) unknown) (unknown) (no (unknown) (unknown) severe (units (unkno wn) date) unknown) (unknown) (no (unknown) (unknown) tissue (units (unkno wn) date) unknown) Social History No information. Vital Signs No information.
[2022-06-10 22:06] LABS: ALBUMIN 4.3 g/dL (3.2-5.5); ALBUMIN/GLOBULIN RATIO 1.8 (1.0-2.2); BILIRUBIN,TOTAL 1.5 mg/dL (0.2-1.0); CALCIUM 9.1 mg/dL (8.5-10.3); CREATININE 0.6 mg/dL (0.4-1.0); POTASSIUM 3.4 mmol/L (3.5-5.0); TOTAL PROTEIN 6.7 g/dL (6.7-8.2)
--- NOTE | 2022-06-10 22:54 | XRAY Report ---
PROCEDURE: Chest 1 View X-Ray INDICATIONS: Chest Pain TECHNIQUE: One view of the chest was acquired. COMPARISON: None. FINDINGS: Surgical changes and devices: None. Lungs and pleura: No pleural effusions or pneumothorax. Lungs are clear. Mediastinum: Mediastinal contours appear normal. Heart size is normal. Bones and chest wall: No suspicious bony lesions. Overlying soft tissues appear unremarkable. IMPRESSION: 1. No acute cardiopulmonary disease. Reviewed by: Mark Anthony Mccabe MD on 06/10/2022 10:52 PM PDT Approved by: Mark Anthony Mccabe MD on 06/10/2022 10:52 PM PDT Station ID: [id number]
--- NOTE | 2022-06-11 00:11 | ED Physician Documentation ---
PD HPI CHEST PAIN - Stated complaint Stated Complaint: CHEST PX,ARM PX - Chief complaint Chief Complaint: Cardiac - History obtained from History obtained from: Patient, Family - Additional information Additional information: The patient comes to the emergency department chief complaint of substernal chest pain started around 1900 this evening. Patient states she was just cutting a cake when it happened. She denies any shortness of breath, nausea, lightheadedness, or sweating. The patient does not have any history of any cardiac disorders. She has hypertension and hyperlipidemia but states these are well controlled. Patient does have a history of GERD, though states she states that this seemed a little worse than her usual GERD. Patient denies any Other complaints at this time. She states that her discomfort is just slightly there but mostly gone. No recent dyspnea on exertion. She states she feels otherwise completely like her normal self. Review of Systems Ten Systems: 10 systems reviewed and negative Constitutional: reports: Reviewed and negative Eyes: reports: Reviewed and negative Ears: reports: Reviewed and negative Nose: reports: Reviewed and negative Throat: reports: Reviewed and negative Cardiac: reports: Chest pain / pressure, Reviewed and negative Respiratory: reports: Reviewed and negative GI: reports: Reviewed and negative : reports: Reviewed and negative Skin: reports: Reviewed and negative Musculoskeletal: reports: Reviewed and negative Neurologic: reports: Reviewed and negative Psychiatric: reports: Reviewed and negative Endocrine: reports: Reviewed and negative Immunocompromised: reports: Reviewed and negative PD PAST MEDICAL HISTORY - Past Medical History Cardiovascular: Hypertension, High cholesterol, Arrhythmia Respiratory: Asthma Endocrine/Autoimmune: None GI: GERD, Chronic diarrhea, Chronic constipation : Incontinence, Other HEENT: Other Psych: None Musculoskeletal: Osteoarthritis, Fibromyalgia, Chronic back pain, Other Derm: None - Past Surgical History Past Surgical History: Yes General: Cholecystectomy, Colonoscopy, EGD Ortho: Knee replacement, Rotator cuff repair, 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, Hysterectomy HEENT: Tonsil/Adenoidectomy - Present Medications Home Medications: Ambulatory Orders Medication Instructions Recorded Confirmed Atorvastatin [Lipitor] 20 mg 03/24/18 Cevimeline HCl [Evoxac] 30 mg 03/24/18 Fluticasone/Vilanterol [Breo 03/24/18 Ellipta 100-25 Mcg INH] Lifitegrast [Xiidra] 03/24/18 Metoprolol Succinate [Toprol Xl] 25 mg 03/24/18 Oxycodone HCl 5 mg 03/24/18 Pantoprazole [Protonix] 40 mg 03/24/18 Pentosan Polysulfate Sodium 03/24/18 [Elmiron] - Allergies Allergies/Adverse Reactions: Allergies Allergy/AdvReac Type Severity Reaction Status Date / Time naproxen Allergy Mild Itching Verified 06/10/22 21:34 - Social History Does the pt smoke?: No Smoking Status: Never smoker Does the pt drink ETOH?: No Does the pt have substance abuse?: No - Immunizations Immunizations are current?: Yes - POLST Patient has POLST: No PD ED PE NORMAL - Vitals Vital signs reviewed: Yes - General General: Alert and oriented X 3, No acute distress, Well developed/nourished - HEENT HEENT: Atraumatic, PERRL, EOMI, Moist mucous membranes - Neck Neck: Supple, no meningeal sign - Cardiac Cardiac: RRR, No murmur, Strong equal pulses - Respiratory Respiratory: No respiratory distress, Clear bilaterally - Abdomen Abdomen: Soft, Non tender, Non distended - Derm Derm: Normal color, Warm and dry, No rash - Extremities Extremities: No deformity, No edema - Neuro Neuro: Alert and oriented X 3 - Psych Psych: Normal mood, Normal affect Results - Vitals Vitals: Vital Signs - 24 hr 06/10/22 06/10/22 06/10/22 21:30 21:44 23:31 Temperature 35.9 C L Heart Rate 72 68 62 Respiratory 14 18 16 Rate Blood Pressure 153/80 H 153/80 H 143/67 H O2 Saturation 97 96 97 06/11/22 00:15 Temperature Heart Rate 64 Respiratory 16 Rate Blood Pressure 141/65 H O2 Saturation 95 Oxygen O2 Source Room air - EKG (time done) 2131 Rate: Rate (enter#) (68) Rhythm: NSR [place]: Normal Intervals: Normal [place] QRS: LVH Ischemia: Normal ST segments Compare to prior EKG: Old EKG unavailable Computer interpretation: Agree with computer - Labs Labs: Laboratory Tests 06/10/22 06/10/22 06/10/22 21:44 21:44 21:44 WBC 7.9 RBC 3.76 L Hgb 12.0 Hct 36.0 L MCV 95.7 MCH 31.9 H MCHC 33.3 RDW 13.4 Plt Count 269 MPV 10.5 Neut # (Auto) 4.1 Lymph # (Auto) 3.0 Upson # (Auto) 0.7 Eos # (Auto) 0.1 Baso # (Auto) 0.1 Absolute Nucleated RBC 0.00 Nucleated RBC % 0.0 Sodium 140 Potassium 3.4 L Chloride 107 Carbon Dioxide 25 Anion Gap 8.0 BUN 12 Creatinine 0.6 Estimated GFR (MDRD) 97 Glucose 102 H Calcium 9.1 Total Bilirubin 1.5 H AST 31 ALT 21 Alkaline Phosphatase 55 Troponin I High Sens 3.6 Total Protein 6.7 Albumin 4.3 Globulin 2.4 Albumin/Globulin Ratio 1.8 Lipase 100 H 06/10/22 23:31 WBC RBC Hgb Hct MCV MCH MCHC RDW Plt Count MPV Neut # (Auto) Lymph # (Auto) Upson # (Auto) Eos # (Auto) Baso # (Auto) Absolute Nucleated RBC Nucleated RBC % Sodium Potassium Chloride Carbon Dioxide Anion Gap BUN Creatinine Estimated GFR (MDRD) Glucose Calcium Total Bilirubin AST ALT Alkaline Phosphatase Troponin I High Sens 3.8 Total Protein Albumin Globulin Albumin/Globulin Ratio Lipase PD MEDICAL DECISION MAKING - ED course Complexity details: reviewed results, re-evaluated patient, considered differential, d/w patient ED course: Patient was worked up with labs and EKG, which were unremarkable. Her repeat troponin was also negative. I felt the patient was stable for discharge. We have discussed the need for follow-up with her primary care physician to discuss stress test. We have also discussed the usual indications for return. Departure - Departure Disposition: 01 Home, Self Care Clinical Impression: Chest pain Qualifiers: Chest pain type: unspecified Qualified Code(s): R07.9 - Chest pain, unspecified Condition: Stable Instructions: ED Chest Pain Atypical Unkn Cause Comments: Your EKG and cardiac enzymes look good. There is no evidence of heart attack tonight. Your pancreatic enzymes were mildly elevated, though you do not have any abdominal tenderness to indicate pancreatitis. Please follow-up with your primary doctor to discuss whether you should have a stress test done to further evaluate your chest pain. At this point in time, there is no evidence of an emergent cause of the pain and may very well be related to your GERD. However, if it gets severe and is associated with shortness of breath, nausea, or sweating, please return to the emergency department for further evaluation. Discharge Date/Time: 06/11/22 00:21
[2022-06-11 00:15] VITALS: BP 141/65
== END 2022-06-11 00:21 | disposition home or self-care (01) ==
LOC: ED 21:22
DX: R07.9 Chest pain, unspecified (principal); I10 Essential (primary) hypertension
CPT/HCPCS: 36415; 80053; 83690; 84484; 85025; 93005; 99282; 99284

== ENCOUNTER 2024-04-29 07:39 | Day surgery (SDC) | payer MEDICARE, OTHER ==
[2024-04-29] MEDS: KETOROLAC TROMETHAMINE 0.5% OPHTH DROPS 5 ML ONE (08:05)
[2024-04-29] MEDS: PROPARACAINE 0.5% OPHTH DROPS 15 ML ONE (08:05)
[2024-04-29] MEDS: PHENYLEPHRINE 2.5% OPHTH 2 ML DROPS ONE (08:10)
[2024-04-29] MEDS: CYCLOPENTOLATE 1% OPHTH DROPS 2 ML ONE (08:10)
[2024-04-29] MEDS: LACTATED RINGERS 1,000 ML IV ONE (08:12)
--- NOTE | 2024-04-29 09:01 | ANESTHESIA ---
Pre-Anesthesia VS, & Labs - Diagnosis L cataract - Procedure L pHacoIOL Vital Signs: Temp Pulse Resp BP Pulse Ox O2 Flow Rate 36.3 C L 72 14 140/66 H 99 04/29/24 08:14 04/29/24 08:14 04/29/24 08:14 04/29/24 08:14 04/29/24 08:14 Height: 5 ft 1 in Weight (kg): 47.9 kg Body Mass Index: 19.9 BMI Classification: Normal - NPO >8 hours - Is Patient ?: No Home Medications and Allergies Home Medications: Ambulatory Orders Amlodipine Besylate [Norvasc] 2.5 mg PO DAILY 04/28/24 traMADol [Ultram] 50 mg PO DAILY 04/28/24 Atorvastatin [Lipitor] 20 mg PO DAILY 03/24/18 Cevimeline HCl [Evoxac] 30 mg PO DAILY 03/24/18 Metoprolol Succinate [Toprol Xl] 25 mg PO DAILY 03/24/18 Pantoprazole [Protonix] 40 mg PO BID 03/24/18 Pentosan Polysulfate Sodium [Elmiron] 100 mg PO BID 03/24/18 Amlodipine Besylate [Norvasc] 2.5 mg PO DAILY 04/28/24 traMADol [Ultram] 50 mg PO DAILY 04/28/24 Allergies/Adverse Reactions: Allergies Allergy/AdvReac Type Severity Reaction Status Date / Time naproxen Allergy Mild Itching Verified 04/29/24 08:23 Anes History & Medical History - Anesthetic History Anesthesia Complications: reports: No previous complications Family history of Anesthesia Complications: Denies Family history of Malignant Hyperthermia: Denies - Medical History Cardiovascular: reports: Hypertension Pulmonary: reports: None Gastrointestinal: reports: Colon polyps Urinary: reports: None Musculoskeletal: reports: Osteoarthritis, Fatigue, Chronic back pain Endocrine/Autoimmune: reports: None Skin: reports: None Smoking Status: Never smoker Psychosocial: reports: No issues indicated History of Cancer?: Yes - Surgical History General: reports: Colonoscopy Eyes Ears Nose Throat (EENT): reports: Tonsil/Adenoidectomy Gynecologic: reports: Hysterectomy Orthopedic: reports: Knee replacement Exam General: Alert, Oriented x3, Cooperative Dental: WNL Mouth Openin Fingerbreadth Neck Mobility: Normal Mallampati classification: I Thyromental Distance: 4-6 cm Respiratory: Lungs clear Cardiovascular: Regular rate Plan Anesthesia Type: MAC Consent for Procedure(s) Verified and Reviewed: Yes Code Status: Attempt Resuscitation ASA classification: 3-Severe systemic disease Is this case an emergency?: No
[2024-04-29] MEDS ORDERED: EPINEPHrine 1 MG/ML AMP ONE (09:19)
[2024-04-29] MEDS ORDERED: BSS/LIDOCAINE/EPINEPHRINE 1 ML VIAL ONE (09:19)
[2024-04-29] MEDS ORDERED: BRIMONIDINE 0.2% OPHTH DROPS 5 ML ONE (09:19)
[2024-04-29] MEDS ORDERED: TIMOLOL 0.5% OPHTH DROPS ONE (09:19)
[2024-04-29] MEDS ORDERED: TRIAMCIN/MOXIFLOX OPHTHALMIC 0.6 ML VIAL IO ONE (09:19)
[2024-04-29] MEDS ORDERED: MIDAZOLAM 2 MG/2 ML VIAL ONE (09:28)
[2024-04-29] MEDS: BSS/LIDOCAINE/EPINEPHRINE 1 ML SYRINGE IO ONE (09:56)
[2024-04-29] MEDS: EPINEPHrine 1 MG/ML AMP IR ONE (09:56)
[2024-04-29] MEDS: BRIMONIDINE 0.2% OPHTH DROPS 5 ML OPTH ONE (09:56)
[2024-04-29] MEDS: TIMOLOL 0.5% OPHTH DROPS OPTH ONE (09:56)
[2024-04-29] MEDS: PROPARACAINE 0.5% OPHTH DROPS 15 ML LEFTEYE ONE (09:57)
[2024-04-29] MEDS: VANCOMYCIN OPHTH (TOPICAL) 10 MG/ML SYRINGE TOP ONE (09:57)
[2024-04-29] MEDS: TRIAMCIN/MOXIFLOX OPHTHALMIC 0.6 ML VIAL IO ONE (09:57)
[2024-04-29] MEDS: LACTATED RINGERS 600 ML IV ONE (10:04)
--- NOTE | 2024-04-29 10:14 | OPERATIVE REPORT ---
Operative Report - Other Other Information/Narrative: Date of Surgery: 04/29/24 Preop Dx: Visually significant cataract left eye. This was the first cataract surgery. Postop Dx: Same Procedure: Phacoemulsification with posterior chamber intraocular lens implant left eye Surgeon: Dr. Edwin Chand Anesthesia: Monitored anesthesia care Complications: None Operative Indications: This is a 78-year-old F with progressive vision loss in the left eye due to 2+ nuclear sclerotic and 1-2+ posterior subcapsular cataract. Best corrected visual acuity was 20/40 with glare to light perception vision in the left eye. Indications for surgery were: - Overall decrease in vision - Difficulty seeing words on a computer screen - Difficulty reading - Difficulty seeing words, closed captions, or game scores on TV - Difficulty seeing street signs - Difficulty driving in low light or at night - Difficulty driving at night because of headlights from other vehicles - Difficulty with glare or bright lights in any situation - Difficulty tracking a golf ball The patient was consented at length concerning the risks and benefits of joellen ract surgery after which the patient expressed a desire to proceed with surgery. Operative Procedure: The patient was taken into OR#3 and placed under monitored anesthesia care. A surgical time-out was conducted confirming correct patient, correct procedure, and correct surgical site. The patient was given topical anesthesia and then prepped and draped in the usual sterile fashion. The eye was entered at the 6 and 3 oclock positions. Intracameral Shugarcaine was injected into the anterior chamber followed by a dispersive viscoelastic. A continuous-tear curvilinear capsulorhexis was performed. The nucleus was hydrodissected and phacoemulsified. The cortex was evacuated using automated infusion and aspiration. A cohesive viscoelastic was injected into the capsular bag and a 16.5 diopter intraocular lens was inserted into the bag. Infusion and aspiration were used to evacuate the viscoelastic materials from the eye. The wounds were hydrated and the eye inflated to physiologic pressure using balanced salt solution. Approximately 0.25ml of a mixture of triamcinolone and moxifloxacin was injected trans-sclerally into the vitreous in the inferotemporal quadrant using a 30 gauge cannula. An additional 0.25ml of a mixture of triamcinolone and moxifloxacin was injected subconjunctivally in the superior quadrant for infection and inflammation prophylaxis. Wound integrity was checked with Weck-Opal sponges. The patient was taken from the operating room in good condition and given post-op instructions.
[2024-04-29 10:30] VITALS: BP 140/63; O2SAT 100
--- NOTE | 2024-04-29 10:51 | ANESTHESIA POST OP EVALUATION ---
Anesthesia Post Eval - Post Anesthesia Eval Vitals: Last Vital Signs Temp 36.8 C 04/29/24 10:05 Pulse 76 04/29/24 10:26 Resp 16 04/29/24 10:26 BP 140/63 H 04/29/24 10:26 Pulse Ox 100 04/29/24 10:26 O2 Flow Rate CV Function Including HR & BP: Stable Pain Control: Satisfactory Nausea & Vomiting: Negative Mental Status: Baseline Respiratory Status: Airway Patent Hydration Status: Satisfactory Anesthesia Complications: None
== END 2024-04-29 07:40 | disposition home or self-care (01) ==
LOC: SDS 07:39
PROVIDERS: ATTEND Ophthalmology
DX: E11.36 Type 2 diabetes mellitus with diabetic cataract (principal); H25.812 Combined forms of age-related cataract, left eye
CPT/HCPCS: 66984; A9270; J3490; J7120

== ENCOUNTER 2024-06-03 08:24 | Day surgery (SDC) | payer MEDICARE, OTHER ==
[2024-06-03] MEDS: LACTATED RINGERS 1,000 ML IV ONE ×2 (08:44→10:35)
[2024-06-03] MEDS: PHENYLEPHRINE 2.5% OPHTH 2 ML DROPS ONE (08:45)
[2024-06-03] MEDS: PROPARACAINE 0.5% OPHTH DROPS 15 ML ONE (08:45)
[2024-06-03] MEDS: CYCLOPENTOLATE 1% OPHTH DROPS 2 ML ONE (08:45)
[2024-06-03] MEDS: KETOROLAC TROMETHAMINE 0.5% OPHTH DROPS 5 ML ONE (08:45)
--- NOTE | 2024-06-03 09:35 | ANESTHESIA ---
Pre-Anesthesia VS, & Labs - Diagnosis right eye cataract - Procedure right phaco/iol/ Vital Signs: Temp Pulse Resp BP Pulse Ox O2 Flow Rate 36.6 C 70 16 133/66 H 99 06/03/24 08:46 06/03/24 08:46 06/03/24 08:46 06/03/24 08:46 06/03/24 08:46 Height: 5 ft 1 in Weight (kg): 46.4 kg Body Mass Index: 19.3 BMI Classification: Normal - NPO >8 hours - Is Patient ?: No Home Medications and Allergies Home Medications: Ambulatory Orders Ubidecarenone [Co Q-10] 10 mg PO DAILY 06/03/24 Atorvastatin [Lipitor] 20 mg PO DAILY 03/24/18 Cevimeline HCl [Evoxac] 30 mg PO DAILY 03/24/18 Metoprolol Succinate [Toprol Xl] 25 mg PO DAILY 03/24/18 Pantoprazole [Protonix] 40 mg PO BID 03/24/18 Pentosan Polysulfate Sodium [Elmiron] 100 mg PO BID 03/24/18 Amlodipine Besylate [Norvasc] 2.5 mg PO DAILY 04/28/24 traMADol [Ultram] 50 mg PO DAILY 04/28/24 Ubidecarenone [Co Q-10] 10 mg PO DAILY 06/03/24 Allergies/Adverse Reactions: Allergies Allergy/AdvReac Type Severity Reaction Status Date / Time naproxen Allergy Mild Itching Verified 06/03/24 08:50 Anes History & Medical History - Anesthetic History Anesthesia Complications: reports: No previous complications - Medical History Cardiovascular: reports: Hypertension Pulmonary: reports: None Gastrointestinal: reports: Colon polyps Urinary: reports: None Musculoskeletal: reports: Osteoarthritis, Fatigue, Chronic back pain Endocrine/Autoimmune: reports: None Skin: reports: None Smoking Status: Never smoker Psychosocial: reports: No issues indicated - Surgical History General: reports: Colonoscopy Eyes Ears Nose Throat (EENT): reports: Cataracts, Tonsil/Adenoidectomy Gynecologic: reports: Hysterectomy Orthopedic: reports: Knee replacement Results - EKG Results EKG Comparison: Reviewed EKG Exam General: Alert, Oriented x3 Mouth Openin Fingerbreadth Neck Mobility: Normal Mallampati classification: II Thyromental Distance: 4-6 cm Respiratory: Lungs clear Cardiovascular: Regular rate Plan Anesthesia Type: MAC Consent for Procedure(s) Verified and Reviewed: Yes Code Status: Attempt Resuscitation ASA classification: 3-Severe systemic disease Is this case an emergency?: No
[2024-06-03] MEDS ORDERED: BRIMONIDINE 0.2% OPHTH DROPS 5 ML ONE (09:54)
[2024-06-03] MEDS ORDERED: TRIAMCIN/MOXIFLOX OPHTHALMIC 0.6 ML VIAL IO ONE (09:54)
[2024-06-03] MEDS ORDERED: TIMOLOL 0.5% OPHTH DROPS ONE (09:54)
[2024-06-03] MEDS ORDERED: EPINEPHrine 1 MG/ML AMP ONE (09:54)
[2024-06-03] MEDS ORDERED: BSS/LIDOCAINE/EPINEPHRINE 1 ML VIAL ONE (09:55)
[2024-06-03] MEDS ORDERED: MIDAZOLAM 2 MG/2 ML VIAL ONE (09:57)
[2024-06-03] MEDS: TIMOLOL 0.5% OPHTH DROPS OPTH ONE (10:19)
[2024-06-03] MEDS: BSS/LIDOCAINE/EPINEPHRINE 1 ML SYRINGE IO ONE (10:19)
[2024-06-03] MEDS: VANCOMYCIN OPHTH (TOPICAL) 10 MG/ML SYRINGE TOP ONE (10:19)
[2024-06-03] MEDS: PROPARACAINE 0.5% OPHTH DROPS 15 ML RIGHTEYE ONE (10:19)
[2024-06-03] MEDS: BRIMONIDINE 0.2% OPHTH DROPS 5 ML OPTH ONE (10:19)
[2024-06-03] MEDS: EPINEPHrine 1 MG/ML AMP IR ONE (10:19)
[2024-06-03] MEDS: TRIAMCIN/MOXIFLOX OPHTHALMIC 0.6 ML VIAL IO ONE (10:19)
--- NOTE | 2024-06-03 10:41 | OPERATIVE REPORT ---
Operative Report - Other Other Information/Narrative: Date of Surgery: 06/03/24 Preop Dx: Visually significant cataract right eye. Cataract surgery was performed in the left eye on . Postop Dx: Same Procedure: Phacoemulsification with posterior chamber intraocular lens implant right eye Surgeon: Dr. Edwin Chand Anesthesia: Monitored anesthesia care Complications: None Operative Indications: This is a 78-year-old F with progressive vision loss in the right eye due to 2+ nuclear sclerotic, 1-2+ posterior subcapsular, and vacuolar cataract. Best corrected visual acuity was 20/30 with glare to light perception vision in the right eye. Indications for surgery were: - Overall decrease in vision - Difficulty seeing words on a computer screen - Difficulty reading - Difficulty seeing words, closed captions, or game scores on TV - Difficulty seeing street signs - Difficulty driving in low light or at night - Difficulty driving at night because of headlights from other vehicles - Difficulty with glare or bright lights in any situation - Difficulty tracking a golf ball - Decreased acuity with firearms The patient was consented at length concerning the risks and benefits of cataract surgery after which the patient expressed a desire to proceed with surgery. Operative Procedure: The patient was taken into OR#3 and placed under monitored anesthesia care. A surgical time-out was conducted confirming correct patient, correct procedure, and correct surgical site. The patient was given topical anesthesia and then prepped and draped in the usual sterile fashion. The eye was entered at the 6 and 3 oclock positions. Intracameral Shugarcaine was injected into the anterior chamber followed by a dispersive viscoelastic. A continuous-tear curvilinear capsulorhexis was performed. The nucleus was hydrodissected and phacoemulsified. The cortex was evacuated using automated infusion and aspiration. A cohesive viscoelastic was injected into the capsular bag and a 20.0 diopter intraocular lens was inserted into the bag. Infusion and aspiration were used to evacuate the viscoelastic materials from the eye. The wounds were hydrated and the eye inflated to physiologic pressure using balanced salt solution. Approximately 0.25ml of a mixture of triamcinolone and moxifloxacin was injected trans-sclerally into the vitreous in the inferotemporal quadrant using a 30 gauge cannula. An additional 0.25ml of a mixture of triamcinolone and moxifloxacin was injected subconjunctivally in the superior quadrant for infection and inflammation prophylaxis. Wound integrity was checked with Weck-Opal sponges. The patient was taken from the operating room in good condition and given post-op instructions.
[2024-06-03 10:52] VITALS: O2SAT 99
[2024-06-03 11:03] VITALS: BP 114/53
--- NOTE | 2024-06-03 11:10 | ANESTHESIA POST OP EVALUATION ---
Anesthesia Post Eval - Post Anesthesia Eval Vitals: Last Vital Signs Temp 36.5 C 06/03/24 10:49 Pulse 62 06/03/24 11:01 Resp 16 06/03/24 11:01 BP 114/53 L 06/03/24 11:01 Pulse Ox 99 06/03/24 11:01 O2 Flow Rate CV Function Including HR & BP: Stable Pain Control: Satisfactory Nausea & Vomiting: Negative Mental Status: Baseline Respiratory Status: Airway Patent Hydration Status: Satisfactory Anesthesia Complications: None
== END 2024-06-03 08:25 | disposition home or self-care (01) ==
LOC: SDS 08:24
PROVIDERS: ATTEND Ophthalmology
DX: E11.36 Type 2 diabetes mellitus with diabetic cataract (principal); H25.811 Combined forms of age-related cataract, right eye; Z98.42 Cataract extraction status, left eye; I10 Essential (primary) hypertension
CPT/HCPCS: 66984; A9270; J3490; J7120